=== PATIENT | female | born 1940 | race Caucasian/White ===

== ENCOUNTER → 2024-06-05 | Outpatient (CLI) | payer MEDICARE, MEDICAID, SELFPAY ==
[2024-06-05 16:32] LABS: Basophils # (Auto) 0.1 Thou/mm3 (0.0-0.2); Basophils % (Auto) 1 % (0-2.5); Eosinophils # (Auto) 1.1 Thou/mm3 (0.0-0.5); Eosinophils % (Auto) 16 % (0-10); Hematocrit 42.8 % (36.0-46.0); Hemoglobin 13.7 g/dL (12.0-16.0); Immature Granulocytes % (Auto) 0 % (0-0); Immature Granulocytes Auto 0.03 Thou/mm3 (0.00-0.00); Lymphocytes # (Auto) 2.2 Thou/mm3 (1.0-4.8); Lymphocytes % (Auto) 31 % (10-50); Mean Corpuscular Hemoglobin 29.7 pg (25.0-35.0); Mean Corpuscular Volume 93 fL (80-100); Monocytes # (Auto) 0.7 Thou/mm3 (0.0-0.8); Monocytes % (Auto) 10 % (0-12); Neutrophils # (Auto) 3.1 Thou/mm3 (1.8-7.7); Neutrophils % (Auto) 43 % (37-80); Nucleated Red Blood Cell % 0 /100 WBC (0); Platelet Count 224 Thou/mm3 (140-440); RDW Standard Deviation 43.3 fL (36.4-46.3); Red Blood Count 4.62 Miln/mm3 (4.00-5.20); White Blood Count 7.2 Thou/mm3 (3.6-11.0)
[2024-06-05 16:41] LABS: Anion Gap 5 (7-16); BUN/Creatinine Ratio 24 Ratio (12-20); Blood Urea Nitrogen 33 mg/dL (9-23); Calcium 11.9 mg/dL (8.3-10.6); Carbon Dioxide 25.6 mMol/L (20.0-31.0); Chloride 109 mMol/L (98-107); Creatinine (Component) 1.4 mg/dL (0.6-1.3); Glucose 99 mg/dL (74-106); Osmolality,Calculated 286 (275-295); Potassium 4.8 mMol/L (3.4-5.1); Sodium 140 mMol/L (136-145); eGFR 37 See Note
[2024-06-05 17:19] LABS: INR 0.9 (0.9-1.3); Partial Thromboplastin Time 24.2 Seconds (22.0-36.0)
== END | disposition home or self-care (01) ==
PROVIDERS: PCP Family Medicine; Referring Provider Internal Medicine; Visit Provider Internal Medicine
DX: I25.10 Atherosclerotic heart disease of native coronary artery without angina pectoris (principal); I48.91 Unspecified atrial fibrillation
CPT/HCPCS: 36415; 80048; 85025; 85610; 85730

== ENCOUNTER 2024-10-27 09:15 | Emergency (ER) | payer MEDICARE, MEDICAID, SELFPAY ==
[2024-10-27 09:30] VITALS: BP 182/110; PULSE 70; PULSE 83; RESP 18; O2SAT 94; O2SAT 98; BMI 27.4
--- NOTE | 2024-10-27 09:30 | PC.NURSE ---
PT CAME IN WITH C/O LAC TO FOREHEAD S/P GROUND LEVEL FALL. PT DENIES LOC. PT CAME IN WITH DRESSING ON FOREHEAD WITH AREA OF BLOOD SATURATION NOTED. PT ALSO C/O R SHOULDER PAIN AND NECK PAIN. DR PENNY AT BEDSIDE. HARD NECK COLLAR PLACED PER DOCTORS ORDERS
--- NOTE | 2024-10-27 09:37 | XR_ITS ---
Examination: CT brain head without contrast. 2-D sagittal coronal reconstructions Date and time of exam:October 27, 2024, 0957 hours INDICATIONS: Ground-level fall today with injury of the head, head pain CTDI: vol (mGy):44.2 DLP: (mGycm):896 Technique: Multiple CT axial sections of the brain have been obtained, 5 mm slice thickness. Contrast has not been administered. 2-D sagittal, coronal reconstructions have been obtained Low dose protocols were performed. One or more of the following dose reduction techniques were used; automated exposure control, adjustment of the mA and/or KV according to patient size, use of iterative reconstruction technique. Findings: No significant ventricular enlargement. Intra-axial or extra-axial hemorrhage density is not seen. No mass effect or midline shift Basal cisterns are not remarkable. Fourth ventricle is midline. Cranial vault intact. Prominent frontal scalp soft tissue swelling/hematoma Impression: Negative for acute hemorrhage, mass effect or midline shift
--- NOTE | 2024-10-27 09:37 | XR_ITS ---
Examination: CT cervical spine without contrast 2-D sagittal reconstructions 2-D coronal reconstructions 3-D reconstructions. Exam date and time:October 27, 2024, 0957 hours INDICATIONS: Patient fell today with into the neck, neck pain CTDI:vol (mGy) 12 DLP: (mGycm) 232 Technique: Multiple 2 mm axial sections of the cervical spine have been obtained. The coronal and sagittal reconstructions have been obtained. 3-D reconstructions have been obtained. Low dose protocols were performed. One or more of the following dose reduction techniques were used; automated exposure control, adjustment of the mA and/or KV according to patient size, use of iterative reconstruction technique. Findings: Axial sections demonstrate intact base of the skull. C1 exhibit satisfactory relationship to the odontoid. No acute cervical vertebral body fracture seen. Alignment posterior spinous processes satisfactory. Advanced degenerative disc disease C4-C5, C5-C6 Impression: No acute cervical fracture.
--- NOTE | 2024-10-27 09:51 | EKG_ITS ---
[facility] Test Date: 2024-10-27 Pat Name: AUGUSTUS CANALES Department: Room: - Gender: Female Service Desk Associate: : 1940 Requested By: Cassi Wing Order Number: [id number] Reading MD: Cassi Wing Measurements Intervals [place] Rate: 86 P: 76 TX: 166 QRS: 73 QRSD: 100 T: 81 QT: 316 QTc: 379 Interpretive Statements SINUS RHYTHM SEPTAL MYOCARDIAL INFARCTION , OF INDETERMINATE AGE [40+ ms Q WAVE IN V1/V2] Compared to ECG 04/30/2022 05:01:05 Myocardial infarct finding now present T-wave abnormality no longer present /store/S0/[id number]/ecg/[id number].pdf
--- NOTE | 2024-10-27 09:51 | XR_ITS ---
Examination: AP chest single view TECHNIQUE: AP portable supine chest single view EXAM: Time: October 27, 2024 at 1014 hours INDICATIONS: Chest pain today FINDINGS: Mild prominence left ventricle CABG Mild vascular congestion. No lobar pneumonia Subsegmental atelectasis left upper lobe Prominent osteopenia IMPRESSION: No pneumonia or pulmonary edema
--- NOTE | 2024-10-27 09:51 | XR_ITS ---
Examination: CT maxillofacial, without intravenous contrast. 2-D sagittal reconstructions. 3-D reconstructions. Date and time of exam:October 27, 2024, 0957 hours INDICATIONS: Forehead swelling and pain after falling today CTDI: vol (mGy):14 DLP: (mGycm):271 Technique: Multiple axial images of maxillofacial region, 3.0 mm slice thickness. 2-D sagittal and coronal reconstructions. 3-D reconstructions. Low dose protocols were performed. One or more of the following dose reduction techniques were used; automated exposure control, adjustment of the mA and/or KV according to patient size, use of iterative reconstruction technique. Findings: Pronounced forehead scalp soft tissue swelling Frontal bone is intact Algorithms intact with prominent left maxillary sinusitis No nasal bone fracture. No depression zygomatic arches. Maxillary dental caries Maxilla mandible is intact IMPRESSION: No acute facial fracture.
--- NOTE | 2024-10-27 09:55 | PC.NURSE ---
PT TO CT
--- NOTE | 2024-10-27 10:16 | PD.EDWOUND ---
ED Wound/Laceration-RME/HPI General Chief Complaint: Wound/Laceration Stated Complaint: FALL Time Seen by Provider: 10/27/24 09:37 Arrival date/time: 10/27/24 09:15 RME / HPI RME / HPI narrative: 84 year old female with history of NSTEMI, dementia, hypertension, presented to the ER with a chief complaint of a wound/laceration on the left forehead and left side of nose. Patient stated, I don't remember, I tripped on something, when asked how she obtained the wound. While waiting in the ER patient complained of pain coming from the right shoulder traveling to the left side of her neck. Related Data Home Medications ?Medication ?Instructions ?Recorded ?Confirmed atorvastatin 10 mg tablet (Lipitor) 10 mg PO QDAY 07/19/23 07/19/23 carvedilol 12.5 mg tablet (Coreg) 12.5 mg PO BID 07/19/23 07/19/23 cephalexin 500 mg capsule 500 mg PO QID 07/19/23 07/19/23 clopidogrel 75 mg tablet (Plavix) 75 mg PO QDAY 07/19/23 07/19/23 cyclobenzaprine 5 mg tablet 5 mg PO HS 07/19/23 07/19/23 donepezil 5 mg tablet (Aricept) 5 mg PO QDAY 07/19/23 07/19/23 famotidine 20 mg tablet (Pepcid) 20 mg PO QDAY 07/19/23 07/19/23 mirtazapine 15 mg tablet (Remeron) 15 mg PO QDAY 07/19/23 07/19/23 Previous Rx's ?Medication ?Instructions ?Recorded acetaminophen 500 mg capsule 1,000 mg (2 x 500 mg) PO Q6H PRN 07/19/23 fever or pain #30 caps albuterol sulfate 90 mcg/actuation 2 puff inhalation Q4H PRN 07/19/23 aerosol inhaler shortness of breath #8.5 grams fluticasone propionate 115 1 puff inhalation BID #8 grams 07/19/23 mcg-salmeterol 21 mcg/actuation HFA inhaler (Advair HFA) doxycycline hyclate 100 mg capsule 100 mg PO BID #14 caps 08/23/23 prednisone 50 mg tablet 50 mg PO QDAY #5 tabs 08/23/23 doxycycline monohydrate 100 mg 100 mg PO BID #14 caps 10/27/24 capsule Allergies Allergy/AdvReac Type Severity Reaction Status Date / Time Sulfa (Sulfonamide Allergy Severe UNKNOWN Verified 10/27/24 10:08 Antibiotics) Review of Systems Review of Systems Systems Reviewed: All systems reviewed, normal except as documented Narrative Review of Systems: Gen: No fever, no chills, no weight loss EYES: No discharge, no visual changes, no pain HEENT: +forhead pain from wound, No ear pain, no congestion, no sore throat PULM: No shortness of breath, no cough, no congestion CV: No chest pain, no dyspnea on exertion, no palpitations GI: No nausea, no vomiting, no diarrhea, no pain, no constipation : No frequency, no urgency, no dysuria Musc/skel: + right shoulder pain, No joint pain, no back pain Skin: No rash Psyc: No hallucinations, no depression Heme/Lymph: No easy bleeding or bruising tendencies Neuro: No weakness, no headache ED Exam Narrative Physical exam: GENERAL APPEARANCE: alert, well-developed, well-nourished, no acute distress HEENT: Normocephalic, 6 cm irregular deep laceration mid-forehead with macerated edge, 2cm curvilinear laceration to the right nose ; pupils equal, round, reactive to light; EOMI; mucous membranes pink, moist; oropharynx clear NECK: Supple LUNGS: CTABL; no wheezes, no rales, no rhonchi HEART: Regular rate, regular rhythm; normal S1, S2; no murmurs ABDOMEN: non distended; normal BS; soft, no tenderness, no guarding, no rebound; no masses, no organomegaly, no hernia BACK: no CVA tenderness EXTREMITIES: atraumatic; no edema NEUROLOGIC: awake; alert; cranial nerves II-XII grossly intact; no focal sensory or motor deficits PSYCHIATRIC: appropriate mood and affect SKIN: ecchymosis extending across forehead, warm, dry; no rashes Course Course Course Narrative: Chest x-ray has been ordered due to determining etiology of Non-STEMI Quality Measures none Orders Category Date Time Status Pasteurizer NOW Care 10/27/24 09:51 Active EKG (ED ONLY) *Do not use* NOW Care 10/27/24 09:[address] cervical spine wo con Stat Exams 10/27/24 09:[address] facial bones wo con Stat Exams 10/27/24 09:[address] head/brain wo con Stat Exams 10/27/24 09:37 Completed EKG (ED Only) Stat Exams 10/27/24 09:51 Draft XR chest 1V portable Stat Exams 10/27/24 09:51 Completed B-Type Natriuretic Peptide Stat Lab 10/27/24 10:30 Completed CBC Stat Lab 10/27/24 10:30 Completed Comprehensive Metabolic Panel Stat Lab 10/27/24 10:30 Completed Lipase Stat Lab 10/27/24 10:30 Completed Magnesium Stat Lab 10/27/24 10:30 Completed PTH [Parathyroid Hormone Intact] Stat Lab 10/27/24 10:30 Received Partial Thromboplastin Time Stat Lab 10/27/24 10:30 Completed Prothrombin Time with INR Stat Lab 10/27/24 10:30 Completed Troponin I Stat Lab 10/27/24 10:30 Completed Lidocaine 1% 20 ml [Xylocaine 1% 20 ML] Med 10/27/24 09:38 Discontinued 20 ml INFL X1 ONE TET,DIP/PERT AC (Adult)-Tdap [Boostrix Adult (Tdap) Med 10/27/24 12:28 Discontinued Vacc] 0.5 ml IMI .ONCE ONE Vital Signs Vital signs: Vital Signs Pulse Rate 83 10/27/24 09:30 Respiratory Rate 18 10/27/24 09:30 Blood Pressure 182/110 H 10/27/24 09:30 Pulse Oximetry (%) 94 L 10/27/24 09:30 Oxygen Delivery Method Room Air 10/27/24 09:30 Procedures -ED Laceration Laceration 1: Site: face (mid-forehead) Size (cm): 6 Description: irregular (macerated ) Depth: simple, single layer Local Anesthetic: lidocaine 1% Amount of anesthesia used (mL): 10 Pre-repair: wound explored, irrigated extensively and wound margins revised Skin layer closed with: other (ethilon) Size (cm): 4-0 Number of sutures: 12 Technique: simple, interrupted Laceration 2: Site: face (right nose) Size (cm): 2 Description: linear (curvilinear) Depth: simple, single layer Local Anesthetic: lidocaine 1% Amount of anesthesia used (mL): 2 Pre-repair: wound explored and irrigated extensively Skin layer closed with: other (skin glue) Wound / Laceration MDM Narrative MDM Narrative:: I, Annaleeej Kumari, am scribing for and in the presence of Dr. Grimaldo Patient data External records reviewed:: [facility] previous records Clinical information provided by:: patient Social determinants that could affect healthcare access:: none Patient has the following chronic illnesses:: NSTEMI, dementia, hypertension How is presenting disease/condition affected by chronic disease/condition?: exacerbated by Evaluation data The following diagnostics were reviewed and interpreted by me:: lab results, radiology exam(s) and EKG tracing(s) (EKG#1: EKG at 1148 hours.Interpreted by me: sinus rhythm, rate 86, mild artifact QA @ V1,V2,V3, no ischemic changes) Lab and/or radiology exams considered but not ordered:: none Interpretation Summary: Ordering Physician: Cassi Grimaldo MD Date of Service: 10/27/24 Procedure(s): CT facial bones wo con Accession Number(s): [id number] cc: Adonis Mike MD; NO PRIMARY/FAMILY,PHYSICIAN; Casis Grimaldo MD~ Examination: CT maxillofacial, without intravenous contrast. 2-D sagittal reconstructions. 3-D reconstructions. Date and time of exam:October 27, 2024, 0957 hours INDICATIONS: Forehead swelling and pain after falling today CTDI: vol (mGy):14 DLP: (mGycm):271 Technique: Multiple axial images of maxillofacial region, 3.0 mm slice thickness. 2-D sagittal and coronal reconstructions. 3-D reconstructions. Low dose protocols were performed. One or more of the following dose reduction techniques were used; automated exposure control, adjustment of the mA and/or KV according to patient size, use of iterative reconstruction technique. Findings: Pronounced forehead scalp soft tissue swelling Frontal bone is intact Algorithms intact with prominent left maxillary sinusitis No nasal bone fracture. No depression zygomatic arches. Maxillary dental caries Maxilla mandible is intact IMPRESSION: No acute facial fracture. Dictated By: Adonis Mike MD Signed By: <Electronically signed by Adonis Mike MD in OV> 10/27/24 1100 Ordering Physician: Cassi Grimaldo MD Date of Service: 10/27/24 Procedure(s): XR chest 1V portable Accession Number(s): [id number] cc: Adonis Mike MD; NO PRIMARY/FAMILY,PHYSICIAN; Cassi Grimaldo MD~ Examination: AP chest single view TECHNIQUE: AP portable supine chest single view EXAM: Time: October 27, 2024 at 1014 hours INDICATIONS: Chest pain today FINDINGS: Mild prominence left ventricle CABG Mild vascular congestion. No lobar pneumonia Subsegmental atelectasis left upper lobe Prominent osteopenia IMPRESSION: No pneumonia or pulmonary edema Dictated By: Adonis Mike MD Signed By: <Electronically signed by Adonis Mike MD in OV> 10/27/24 1104 Ordering Physician: Cassi Grimaldo MD Date of Service: 10/27/24 Procedure(s): CT head/brain wo con Accession Number(s): [id number] cc: Adonis Mike MD; NO PRIMARY/FAMILY,PHYSICIAN; Cassi Grimaldo MD~ Examination: CT brain head without contrast. 2-D sagittal coronal reconstructions Date and time of exam:October 27, 2024, 0957 hours INDICATIONS: Ground-level fall today with injury of the head, head pain CTDI: vol (mGy):44.2 DLP: (mGycm):896 Technique: Multiple CT axial sections of the brain have been obtained, 5 mm slice thickness. Contrast has not been administered. 2-D sagittal, coronal reconstructions have been obtained Low dose protocols were performed. One or more of the following dose reduction techniques were used; automated exposure control, adjustment of the mA and/or KV according to patient size, use of iterative reconstruction technique. Findings: No significant ventricular enlargement. Intra-axial or extra-axial hemorrhage density is not seen. No mass effect or midline shift Basal cisterns are not remarkable. Fourth ventricle is midline. Cranial vault intact. Prominent frontal scalp soft tissue swelling/hematoma Impression: Negative for acute hemorrhage, mass effect or midline shift Dictated By: Adonis Mike MD Signed By: <Electronically signed by Adonis Mike MD in OV> 10/27/241056 Ordering Physician: Cassi Grimaldo MD Date of Service: 10/27/24 Procedure(s): CT cervical spine wo [facility] Accession Number(s): [id number] cc: Adonis Mike MD; NO PRIMARY/FAMILY,PHYSICIAN; Cassi Grimaldo MD~ Examination: CT cervical spine without contrast 2-D sagittal reconstructions 2-D coronal reconstructions 3-D reconstructions. Exam date and time:October 27, 2024, 0957 hours INDICATIONS: Patient fell today with into the neck, neck pain CTDI:vol (mGy) 12 DLP: (mGycm) 232 Technique: Multiple 2 mm axial sections of the cervical spine have been obtained. The coronal and sagittal reconstructions have been obtained. 3-D reconstructions have been obtained. Low dose protocols were performed. One or more of the following dose reduction techniques were used; automated exposure control, adjustment of the mA and/or KV according to patient size, use of iterative reconstruction technique. Findings: Axial sections demonstrate intact base of the skull. C1 exhibit satisfactory relationship to the odontoid. No acute cervical vertebral body fracture seen. Alignment posterior spinous processes satisfactory. Advanced degenerative disc disease C4-C5, C5-C6 Impression: No acute cervical fracture. Dictated By: Adonis Mike MD Signed By: <Electronically signed by Adonis Mike MD in OV> 10/27/241054 Medications / Prescriptions Medications or Prescriptions considered but not ordered:: none Medication administrations:: Medication Administration History Discontinued Medications Diphtheria/Tetanus/Acell Pertussis (Diphth,Pertuss(Acell),Tet Vac 0.5 Ml Syr- Adult) 0.5 ml IMi .ONCE ONE Stop: 10/27/24 12:29 Last Admin: 10/27/24 13:00 Dose: 0.5 ml Documented By: DO Lidocaine HCl (Lidocaine Hcl 1% 20 Ml Vial) 20 ml INFL X1 ONE Stop: 10/27/24 09:39 Last Admin: 10/27/24 11:25 Dose: 12 ml Documented By: LF Comments: ADMINISTERED BY MD/UNABLE TO SCAN MED see above. Consultations Consultation(s) initiated? (list below): No Diagnosis Wound Differential Diagnosis: laceration, abrasion and avulsion of skin Most likely diagnosis given after review of the tests above:: fall, complex laceration of forehead, laceration of cheek (right), hypercalcemia, cough, bronchitis Admission Indicated Admission indicated?: not indicated Admission Request Was there a request for admission?: No Disposition Plan Disposition Plan: Discharge Discharge Attestation Discharge Attestation: The patient and all family members were given an opportunity to ask questions and understood the discharge instructions. Discharge instructions specifically effects, indications for sooner follow up or return to the emergency department, and the expected course of current diagnosis. Patient condition: Stable Discharge Plan Plan Patient Disposition: HOME (Self Care) Prescriptions/Referrals Prescriptions/Med Rec: New doxycycline monohydrate 100 mg capsule 100 mg PO BID Qty: 14 0RF No Action carvedilol [Coreg] 12.5 mg Tablet 12.5 mg PO BID Rx Instructions: must administer with a meal/food donepezil [Aricept] 5 mg Tablet 5 mg PO QDAY atorvastatin [Lipitor] 10 mg Tablet 10 mg PO QDAY clopidogrel [Plavix] 75 mg Tablet 75 mg PO QDAY famotidine [Pepcid] 20 mg Tablet 20 mg PO QDAY cephalexin 500 mg Capsule 500 mg PO QID mirtazapine [Remeron] 15 mg Tablet 15 mg PO QDAY cyclobenzaprine [Flexeril] 5 mg Tablet 5 mg PO HS acetaminophen 500 mg capsule 1,000 mg PO Q6H PRN (Reason: fever or pain) Qty: 30 0RF fluticasone propion-salmeterol [Advair HFA] 115-21 mcg/actuation HFA aerosol inhaler 1 puff INH BID Qty: 8 0RF albuterol sulfate 90 mcg/actuation HFA aerosol inhaler 2 puff INH Q4H PRN (Reason: shortness of breath) Qty: 8.5 0RF doxycycline hyclate 100 mg capsule 100 mg PO BID Qty: 14 0RF prednisone 50 mg tablet 50 mg PO QDAY Qty: 5 0RF Referrals: No Primary/Family,Physician [Primary Care Provider] - In 1 week Problem List Clinical Impression: Fall, Complex laceration of forehead, Laceration of cheek, right, Hypercalcemia, Cough, Bronchitis Patient/Caregiver Discharge Instructions Education Materials: Hypercalcemia Dc, ED Upper Resp Infec Abx Tx, ED Head Injury (Adult), ED Laceration, Face: Skin Glue, ED Laceration, Face: Stitches or Tape Additional Instructions: Follow up in 2 days for wound check. Follow up in 5-7 days for suture removal. Print Language: Eritrean Stand Alone Forms: Krystal Award Info., Patient Portal Info Letter
--- NOTE | 2024-10-27 10:30 | PC.NURSE ---
WOUND CLEANED AT THIS TIME. DR PENNY AT BEDSIDE FOR SUTURE APPLICATION
[2024-10-27 10:44] LABS: Basophils # (Auto) 0.1 Thou/mm3 (0.0-0.2); Basophils % (Auto) 1 % (0-2.5); Eosinophils # (Auto) 0.8 Thou/mm3 (0.0-0.5); Eosinophils % (Auto) 6 % (0-10); Hematocrit 43.1 % (36.0-46.0); Immature Granulocytes % (Auto) 1 % (0-0); Immature Granulocytes Auto 0.08 Thou/mm3 (0.00-0.00); Lymphocytes # (Auto) 2.7 Thou/mm3 (1.0-4.8); Lymphocytes % (Auto) 21 % (10-50); Mean Corpuscular HGB Conc 32.5 g/dl (31.0-37.0); Mean Corpuscular Hemoglobin 29.8 pg (25.0-35.0); Mean Corpuscular Volume 92 fL (80-100); Monocytes # (Auto) 0.8 Thou/mm3 (0.0-0.8); Monocytes % (Auto) 6 % (0-12); Neutrophils # (Auto) 8.4 Thou/mm3 (1.8-7.7); Neutrophils % (Auto) 65 % (37-80); Nucleated Red Blood Cell % 0 /100 WBC (0); Platelet Count 239 Thou/mm3 (140-440); RDW Standard Deviation 42.5 fL (36.4-46.3); White Blood Count 12.8 Thou/mm3 (3.6-11.0)
[2024-10-27 11:01] LABS: B-Type Natriuretic Peptide 122 pg/mL (0-100)
[2024-10-27 11:03] LABS: Alanine Aminotransferase 11 U/L (10-49); Albumin, Serum 3.8 gm/dL (3.4-4.8); Albumin/Globulin Ratio 1.5 (1.2-2.2); Alkaline Phosphatase 111 U/L (46-116); Anion Gap 5 (7-16); Aspartate Amino Transferase 17 U/L (0-34); BUN/Creatinine Ratio 14 Ratio (12-20); Bilirubin,Total 0.5 mg/dL (0.3-1.2); Blood Urea Nitrogen 18 mg/dL (9-23); Calcium 11.9 mg/dL (8.3-10.6); Calcium (Corrected) 12.1 mg/dL (8.5-10.1); Carbon Dioxide 27.8 mMol/L (20.0-31.0); Chloride 111 mMol/L (98-107); Creatinine (Component) 1.3 mg/dL (0.6-1.3); Estimated Creatinine Clearance 29.6 mL/min (>60); Globulin 2.5 gm/dL (2.3-3.5); Glucose 117 mg/dL (74-106); Lipase 42 U/L (12-53); Magnesium 2.4 mg/dL (1.6-2.6); Osmolality,Calculated 289 (275-295); Potassium 4.4 mMol/L (3.4-5.1); Sodium 144 mMol/L (136-145); Total Protein 6.3 gm/dL (5.7-8.2); Troponin I < 0.020 ng/mL (0.0-0.045); eGFR 41 See Note
[2024-10-27 11:06] LABS: INR 0.9 (0.9-1.3); Partial Thromboplastin Time 23.1 Seconds (22.0-36.0); Prothrombin Time 10.2 Seconds (9.0-12.2)
[2024-10-27] MEDS: LIDOCAINE HCL 1% 20 ML VIAL INFL (11:25)
[2024-10-27 12:11] VITALS: BP 156/102; PULSE 92; RESP 18; TEMP 36.6; O2SAT 95
[2024-10-27] MEDS: DIPHTH,PERTUSS(ACELL),TET VAC 0.5 ML SYR- ADULT IMi (13:00)
--- NOTE | 2024-10-27 13:00 | PC.NURSE ---
PT RESTING IN BED IN NO APPARENT DISTRESS. PT ANSWERING QUESTIONS AND FOLLOWING COMMANDS AT THIS TIME. AWAITING FAMILY TO COME PICK PT UP AT THIS TIME
[2024-10-27 14:05] VITALS: BP 142/93; PULSE 86; RESP 18; TEMP 36.6; O2SAT 95
== END 2024-10-27 14:30 | disposition home or self-care (01) ==
PROVIDERS: Emergency Provider Emergency Medicine
DX: S01.81XA Laceration without foreign body of other part of head, initial encounter (principal); S01.21XA Laceration without foreign body of nose, initial encounter; S01.411A Laceration without foreign body of right cheek and temporomandibular area, initial encounter; E83.52 Hypercalcemia; J40 Bronchitis, not specified as acute or chronic; W19.XXXA Unspecified fall, initial encounter; M54.2 Cervicalgia; S09.90XA Unspecified injury of head, initial encounter; I10 Essential (primary) hypertension; Z23 Encounter for immunization; I25.2 Old myocardial infarction
CPT/HCPCS: 12015; 36415; 70450; 70486; 71045; 72125; 80053; 83690; 83735; 83880; 83970; 84484; 85025; 85610; 85730; 90471; 90715; 93005; 99284; J3490